=== PATIENT | male | born 1930 | race Caucasian/White ===

== ENCOUNTER 2017-08-16 21:18 | Emergency (ER) | payer OTHER ==
[~2017-08-16] VITALS: Ht 190.5 cm; Wt 86.2 kg
[~2017-08-16 21:18] MED LIST: AMLODIPINE BESYL5 MG PO; AMOXICILLIN875 MG PO; AVODART0.5 MG PO; AZITHROMYCIN 2250 MG PO; B COMPLEX-VITA1 EACH PO; B12INJ PO; CALCIUM 600 +1 EAC1 PO; COUMADIN 3 MG TA3 MG PO; COUMADIN 5 MG TA5 M1 PO; FISH OIL 1,0001 EAC5 PO; LISINOPRIL2.5 MG PO; LOPRESSOR25 PO; MACROBID 100 M100 M1 PO; MULTIVITAMINS PO; NORCO 5-325 TA1 EACH PO; NORVASC5 MG PO; PRAVACHOL40 MG PO; PRAVACHOL80 MG PO; PROSCAR 5MG TABL5 M1 PO; TOPROL XL50 MG PO; VITAMIN B-12500 MCG PO; VITAMIN D-32000 UNIT PO; VITAMIN D31000 UNI2 PO; VITAMIN E400 UNIT PO
[2017-08-16] MEDS ORDERED: HYDROCODONE-AP1 EAC6 PO (22:47)
[2017-08-16] MEDS ORDERED: KEFLEX500 MG PO (22:47)
== END 2017-08-16 23:26 | disposition home or self-care (01) ==
LOC: ER 21:18
DX: S61.011A Laceration without foreign body of right thumb without damage to nail, initial encounter (principal); I10 Essential (primary) hypertension; W45.8XXA Other foreign body or object entering through skin, initial encounter; Y93.89 Activity, other specified; Y92.89 Other specified places as the place of occurrence of the external cause; Y99.8 Other external cause status